=== PATIENT | female | born 1980 | race Hispanic/Latino ===

== ENCOUNTER 2025-03-13 22:23 | Emergency (ER) | payer MEDICAID ==
[~2025-03-13] VITALS: Ht 160 cm; Wt 63.5 kg
[2025-03-13 22:39] VITALS: BP 114/60; PULSE 92; RESP 20; TEMP 98; O2SAT 100
--- NOTE | 2025-03-13 23:12 | ERN ---
General Chief Complaint: Mandatory Blood Draw Stated Complaint: HERE FOR MANDATORY BLOOD DRAW Time Seen by MD: 22:25 Source: patient, EMS History of Present Illness Initial Comments PATIENT IS A 44-YEAR-OLD FEMALE BROUGHT IN BY LAW [employer] FOR MANDATORY BLOOD DROP. PER [employer] PATIENT HAS BEEN USING IN THE LEFT SIDE OF HER FACE. SHE STATES IT IS NOT BOTHERING HER WHEN SHE HAS NO COMPLAINT. Allergies: Coded Allergies: No Known Allergies (Unverified Allergy, Unknown, 03/13/25) Past Medical History Past Medical History: No Pertinent History Past Surgical History: None Physical Exam General Appearance: (+) no apparent distress Orientation: (+) alert, (+) oriented x 3 Face Comment LEFT INFRAORBITAL ECCHYMOSIS Eye: bilateral eye EOMI Ear, Nose, Throat: (+) hearing grossly normal Results Laboratory and Microbiology Labs Reviewed?: Yes MDM MDM: DIFFERENTIAL DIAGNOSIS: WELLNESS EXAM, LEFT EYE ECCHYMOSIS RATIONALE: TESTS CONSIDERED AND ORDERED SECONDARY TO SHARED DECISION MAKING INCLUDE: PREVIOUS OUTSIDE RECORDS REVIEWED: OLD ER VISITS. RISK OF COMPLICATION AND/OR MORBIDITY OR MORTALITY OF PATIENT MANAGEMENT: NONE MEDICATIONS-PER MEDICATION RECONCILIATION NEED FOR HOSPITALIZATION: PATIENT DOES NOT MEET CRITERIA FOR HOSPITALIZATION. PATIENT IS A 44-YEAR-OLD FEMALE COMING IN BROUGHT IN BY LAW [employer]. [employer] PATIENT EVALUATED FOR ECCHYMOSIS IN THE LEFT ARM. ON PHYSICAL EXAM MILD ECCHYMOSIS BUT NO TENDERNESS PALPATION PATIENT STATES SHE HAS NO COMPLAINT OF THE DISCOMFORT AND IT IS ABLE TO MOVE EYES WITH THE LIMITATION. PATIENT WILL BE DISCHARGED IN STABLE CONDITION WITH A DIAGNOSIS OF WELLNESS EXAM SINCE THE PATIENT IS IN HIS NOT COMPLAINING OF ANYTHING. ED Course Vital Signs Date Time Temp Pulse Resp B/P (MAP) Pulse Ox O2 Delivery O2 Flow Rate FiO2 03/13/25 22:39 98.1 92 20 114/60 100 Room Air* 0 21 03/13/25 22:26 98.1 102 20 105/53 100 Room Air DX & DISP Disposition: Discharge Departure Impression: Primary Impression: Wellness examination Condition: Stable Additional Instructions: FOLLOW-UP WITH PRIMARY CARE PROVIDER IN 1 TO 2 DAYS. TAKE MEDICATIONS DIRECTED HERE IN THE EMERGENCY ROOM. OKAY TO CONTINUE HOME MEDICATIONS UNLESS OTHERWISE DISCUSSED DURING YOUR VISIT IN THE EMERGENCY ROOM TODAY. RETURN TO YOUR NEAREST EMERGENCY ROOM IF SYMPTOMS WORSEN OR IF THERE IS NO IMPROVEMENT. CALL 911 IF YOU NEED IMMEDIATE ASSISTANCE. TAKE TYLENOL [id number] NEEDED AND IF NO CONTRAINDICATIONS ARE PRESENT. INCREASE ORAL HYDRATION. A WOUND CULTURE OR URINE CULTURE WAS ORDERED HERE IN THE EMERGENCY ROOM DEPARTMENT PLEASE FOLLOW-UP WITH PRIMARY CARE PROVIDER AND ADVISE THEM TO GET REPORTS FROM OUR FACILITY. IF YOU HAD ANY ROWAN WRAP/SPLINTS THAT WERE APPLIED HERE, PLEASE DO NOT REMOVE THEM UNTIL YOU SEE YOUR PRIMARY CARE OR SPECIALTY. REFERRALS: Referrals: HAI ROLLE MD Time of Disposition: 23:11 JOLLY YOUNG MD Mar 13, 2025 23:12
--- NOTE | 2025-03-13 23:48 | NUR ---
mandatory blood draw done per hospital protocol
== END 2025-03-13 23:57 ==
LOC: EDH 22:23
DX: Z02.89 Encounter for other administrative examinations (principal)
CPT/HCPCS: 99283